=== PATIENT | male | born 1930 | race Caucasian/White ===

== ENCOUNTER 2016-12-11 05:25 | Observation (INO) | payer MEDICARE, OTHER ==
[~2016-12-11] VITALS: Ht 195.6 cm; Wt 94.1 kg
[~2016-12-11 05:25] MED LIST: COUMADIN 1MG1 MG/TAB PO; COUMADIN 2MG2 MG/TAB PO; COUMADIN 6MG6 MG/TAB PO; COUMADIN PO; COUMADIN6 MG PO; DIGITEK0.125 MG PO; LANOXIN 0.120.125 MG PO; LEVAQUIN 5500 MG/TA1 PO; LORTAB 5/500 501 TAB PO; METOPROLOL25 MG PO; SINGULAIR 110 MG/TAB PO; THERAGRAN1 TA1 PO; THEREMS-M1 TAB PO; TOPROL XL 25MG25 MG PO; TYLENOL EXTRA500 M1 PO; VITAMIN; VITAMIN D1000 IU PO; VITAMIN D3400 IU PO; ZYRTEC 10MG10 MG PO; ZYRTEC ALLERGY10 MG PO
[2016-12-11] MEDS ORDERED: VITAMIN D32000 I1 PO (06:08)
[2016-12-11 06:10] LABS: BASO % 0.1 % (0.0-2.0); EOS % 0.2 % (0-4.0); GRAN # 6.7 (1.4-6.5); GRAN % 79.5 % (42.2-75.2); HEMATOCRIT 44.6 % (42.0-52.0); HEMOGLOBIN 15.5 g/dl (13.5-18.0); LYMPH # 1.1 (1.2-3.4); LYMPH % 13.5 % (20.0-51.0); MEAN CELL VOLUME 98 fl (80.0-100.0); MEAN CORPUSCULAR HEMOGLOBIN 34 pg (27.0-31.0); MEAN CORPUSCULAR HGB CONC 35 g/dl (33.0-37.0); MEAN PLATELET VOLUME 10.5 fl (7.4-10.4); MONO # 0.5 (0.1-0.6); MONO % 6.3 % (1.7-9.3); PLATELET COUNT 124 K/mm3 (130-400); RED BLOOD COUNT 4.54 M/mm3 (4.20-5.60); REDCELL DISTRIBUTION WIDTH-CV 12.1 % (11.5-14.5); WHITE BLOOD COUNT 8.5 K/mm3 (4.8-10.8)
[2016-12-11 06:14] LABS: INR 1.5 (0.8-3.0); PROTHROMBIN TIME 16.3 SECONDS (9.7-12.8)
[2016-12-11 06:53] LABS: PH 5 (5-8); SQUAMOUS EPITHELIAL 0-2 /hpf; URINE APPEARANCE Hazy; URINE BACTERIA None Seen /hpf; URINE BILIRUBIN Negative (NEGATIVE); URINE BLOOD Negative (NEGATIVE); URINE COLOR Yellow; URINE GLUCOSE Negative (NEGATIVE); URINE KETONE 1+ (NEGATIVE); URINE RBC 0-2 /hpf; URINE UROBILINOGEN Negative (NEGATIVE); URINE WBC 0-2 /hpf
[2016-12-11 07:02] LABS: ALANINE AMINOTRANSFERASE 33 U/L (21-72); ALBUMIN 3.4 gm/dL (3.5-5.0); ALKALINE PHOSPHATASE 54 U/L (50-136); ANION GAP 7 mmol/L (7-16); BILIRUBIN,TOTAL 1.4 mg/dL (0.0-1.0); BLOOD UREA NITROGEN 15 mg/dL (9-20); C-REACTIVE PROTEIN 2.2 mg/dL (0.0-0.9); CALCIUM 8.5 mg/dL (8.4-10.2); CARBON DIOXIDE 28 mmol/L (22-30); CHLORIDE 100 mmol/L (98-107); CREATININE, serum 0.92 mg/dL (0.66-1.25); GLUCOSE 129 mg/dL (74-106); LIPASE 61 U/L (23-300); POTASSIUM 4.2 mmol/L (3.4-5.0); SODIUM 136 mmol/L (137-145); TOTAL PROTEIN 6.5 gm/dL (6.4-8.2)
[2016-12-11 07:14] LABS: TROPONIN-I < 0.012 ng/mL (0.000-0.034)
[2016-12-11 09:56] VITALS: BP 131/77; PULSE 133; TEMP 98.3
[2016-12-11] MEDS ORDERED: GINKGO4 PO (10:24)
[2016-12-11 13:42] VITALS: BP 117/75; PULSE 71; TEMP 98
[2016-12-11 17:34] VITALS: BP 133/72; PULSE 96; TEMP 97.9
[2016-12-12 02:46] VITALS: BP 108/60; PULSE 67; TEMP 98.5
[2016-12-12 04:56] VITALS: BP 127/83; PULSE 77; TEMP 97.2
[2016-12-12 07:44] LABS: HEMATOCRIT 41.4 % (42.0-52.0); MEAN CELL VOLUME 100 fl (80.0-100.0); MEAN CORPUSCULAR HEMOGLOBIN 34 pg (27.0-31.0); MEAN CORPUSCULAR HGB CONC 34 g/dl (33.0-37.0); MEAN PLATELET VOLUME 10.8 fl (7.4-10.4); PLATELET COUNT 124 K/mm3 (130-400); RED BLOOD COUNT 4.14 M/mm3 (4.20-5.60); REDCELL DISTRIBUTION WIDTH-CV 12.3 % (11.5-14.5); WHITE BLOOD COUNT 6.8 K/mm3 (4.8-10.8)
[2016-12-12 07:59] LABS: CALCIUM 8.4 mg/dL (8.4-10.2); CREATININE, serum 0.95 mg/dL (0.66-1.25); POTASSIUM 3.8 mmol/L (3.4-5.0)
[2016-12-12 09:25] VITALS: BP 132/47; PULSE 75; TEMP 98
[2016-12-12] MEDS ORDERED: LEVAQUIN 5500 MG/TA1 PO (13:48)
[2016-12-12] MEDS ORDERED: FLAGYL500 MG PO (13:48)
== END 2016-12-12 14:01 | disposition home or self-care (01) ==
LOC: COL.ER 05:25 → JCC 08:14
PROVIDERS: Emergency Medicine; Surgery
DX: R10.32 Left lower quadrant pain (principal); I49.9 Cardiac arrhythmia, unspecified; I48.91 Unspecified atrial fibrillation; Z79.01 Long term (current) use of anticoagulants; I25.10 Atherosclerotic heart disease of native coronary artery without angina pectoris; I10 Essential (primary) hypertension; Z85.828 Personal history of other malignant neoplasm of skin; Z95.0 Presence of cardiac pacemaker
CPT/HCPCS: G0378; J1650; J2543; J7030; J7040; J7050; Q9967

== ENCOUNTER → 2018-03-03 | Outpatient (CLI) | payer MEDICARE, OTHER ==
[~2018-03-03] MED LIST changes: +FLAGYL500 MG PO; +GINKGO4 PO; +VITAMIN D32000 I1 PO
[2018-03-03 15:37] LABS: HEMATOCRIT 43.9 % (42.0-52.0); HEMOGLOBIN 15.2 g/dl (13.5-18.0); MEAN CELL VOLUME 97 fl (80.0-100.0); MEAN CORPUSCULAR HEMOGLOBIN 34 pg (27.0-31.0); MEAN CORPUSCULAR HGB CONC 35 g/dl (33.0-37.0); MEAN PLATELET VOLUME 10.1 fl (7.4-10.4); PLATELET COUNT 132 K/mm3 (130-400); RED BLOOD COUNT 4.53 M/mm3 (4.20-5.60)
[2018-03-03 15:52] LABS: C-REACTIVE PROTEIN 2.3 mg/dL (0.0-0.9); URIC ACID 5.1 mg/dL (3.5-8.5)
[2018-03-03 16:03] LABS: ERYTHROCYTE SEDIMENTATION RATE 9 mm/hr (0-30)
== END ==
LOC: COL.LAB 15:16
PROVIDERS: Orthopaedic Surgery
DX: M25.432 Effusion, left wrist (principal)